=== PATIENT | female | born 1995 | race Hispanic/Latino ===

== ENCOUNTER → 2024-01-16 | Day surgery (SDC) | payer OTHER ==
[~2024-01-16] MED LIST: AMLODIPINE BESYL5 MG PO; LO LOESTRIN FE1 EACH; METOPROLOL SUCC50 MG PO
[2024-01-16] MEDS: LACTATED RINGER'S 1,000 ML ONE (14:48)
[2024-01-16 18:00] VITALS: BP 128/66; PULSE 87; RESP 17; O2SAT 99
[2024-01-18 21:06] LABS: C-REACTIVE PROTEIN 12 mg/L (0-10)
[2024-01-21 08:17] LABS: ENDOMYSIAL ANTIBODIES, IGA Negative (Negative)
[2024-01-21 09:58] LABS: IMMUNOGLOBULIN A 278 mg/dL (87-352); TISSUE TRANSGLUTAMINASE IGA AB <2 U/mL (0-3)
== END | disposition home or self-care (01) ==
LOC: OR 14:40
PROVIDERS: ATTEND Internal Medicine Gastroenterology
DX: K63.89 Other specified diseases of intestine (principal); K64.8 Other hemorrhoids; Z87.19 Personal history of other diseases of the digestive system; I10 Essential (primary) hypertension; E11.9 Type 2 diabetes mellitus without complications; Z79.84 Long term (current) use of oral hypoglycemic drugs; R00.1 Bradycardia, unspecified; F41.9 Anxiety disorder, unspecified; E66.9 Obesity, unspecified; I83.90 Asymptomatic varicose veins of unspecified lower extremity; M54.2 Cervicalgia; M51.9 Unspecified thoracic, thoracolumbar and lumbosacral intervertebral disc disorder; Z01.810 Encounter for preprocedural cardiovascular examination; Z86.16 Personal history of COVID-19; Z79.899 Other long term (current) drug therapy
CPT/HCPCS: 45380; 81025; 82784; 83516; 86140; 86256; 93005; J7121